=== PATIENT | female | born 1970 | race Caucasian/White ===

== ENCOUNTER 2017-02-05 10:02 | Emergency (ER) | payer BC, MEDICAID, OTHER ==
[~2017-02-05] VITALS: Ht 170.2 cm; Wt 144.7 kg
[2017-02-05 10:09] VITALS: BP 169/111; PULSE 106; RESP 16; TEMP 99; O2SAT 95
--- NOTE | 2017-02-05 10:23 | PD ---
HPI Chief Complaint: [employer] D[employer]er Problem/Complaint Time Seen by Provider: 10:22 Travel History International Travel<30 days: No Contact w/Intl Traveler<30days: No Traveled to known affect area: No History of Present Illness HPI 46-year-old female came to the emergency room with history of vaginal bleeding for past 3 days. Patient says it's been getting heavier. Currently she is soaking 1 pad every 20 minutes. She says it's just pouring out. She has been a little bit lightheaded. Patient was tachycardic with a heart rate in 100s in triage. Patient says her period has become very irregular and her last one was last year. She has some cramps and passing clots as well. She is not on any blood thinners. She has never had heavy bleeding like this in the past. [facility] Past Medical History Narrative Medical List of her past medical, surgical, social and family history is reviewed from the nursing note. Diminished Hearing: No Tetanus Vaccination: Unknown Influenza Vaccination: No ?: Not Tubal Ligation: Yes Past Surgical History Other Surgery: Yes (VOCAL POLYP) Social History Alcohol Use: Yes (OCC) Tobacco Use: Yes (1 PPD) Substance Use: No Allergies-Medications (Allergen,Severity, Reaction): Coded Allergies: No Known Allergies (Unverified , 02/05/17) Comments No known drug allergies. Reported Meds & Prescriptions Reported Meds & Active Scripts Active Megestrol (Megestrol Acetate) 40 Mg Tab 40 Mg PO BID 10 Days Narrative Medication List of her home medications reviewed from the nursing note. Review of Systems Except as stated in HPI: all other systems reviewed are Neg Physical Exam Narrative GENERAL: Awake, alert, obese, anxious, moderate distress SKIN: Warm and dry. HEAD: Atraumatic. Normocephalic. EYES: Pupils equal and round. No scleral icterus. No injection or drainage. ENT: No nasal bleeding or discharge. Mucous membranes pink and moist. NECK: Trachea midline. No JVD. CARDIOVASCULAR: Regular rate and rhythm. No murmur appreciated. RESPIRATORY: No accessory muscle use. Clear to auscultation. Breath sounds equal bilaterally. GASTROINTESTINAL: Abdomen soft, non-tender, nondistended. Hepatic and splenic margins not palpable. MUSCULOSKELETAL: No obvious deformities. No clubbing. No cyanosis. No edema. NEUROLOGICAL: Awake and alert. No obvious cranial nerve deficits. Motor grossly within normal limits. Normal speech. PSYCHIATRIC: Appropriate mood and affect; insight and judgment normal. Data Data Last Documented VS Vital Signs Date Time Temp Pulse Resp B/P Pulse Ox O2 Delivery O2 Flow Rate FiO2 02/05/17 13:06 86 16 162/98 97 02/05/17 10:50 Room Air 02/05/17 10:09 99.0 Orders Complete Blood Count With Diff (02/05/17 10:30) Basic Metabolic Panel (Bmp) (02/05/17 10:30) Ed Urine Pregnancytest Poc (02/05/17 10:30) Sodium Chlor 0.9% 1000 Ml Inj (Ns 1000 M (02/05/17 10:30) Ibuprofen (Motrin) (02/05/17 10:30) Type And Screen (02/05/17 10:30) Us Pelvis Comp W Transvaginal (02/05/17 ) Megestrol (Megace) (02/05/17 12:30) Mandatory Outpatient Referral (02/05/17 12:24) Labs Laboratory Tests Test 02/05/17 11:15 White Blood Count 14.0 TH/MM3 Red Blood Count 5.03 MIL/MM3 Hemoglobin 14.3 GM/DL Hematocrit 43.0 % Mean Corpuscular Volume 85.4 FL Mean Corpuscular Hemoglobin 28.5 PG Mean Corpuscular Hemoglobin 33.4 % Concent Red Cell Distribution Width 13.1 % Platelet Count 353 TH/MM3 Mean Platelet Volume 8.0 FL Neutrophils (%) (Auto) 74.7 % Lymphocytes (%) (Auto) 16.9 % Monocytes (%) (Auto) 3.8 % Eosinophils (%) (Auto) 1.6 % Basophils (%) (Auto) 3.0 % Neutrophils # (Auto) 10.5 TH/MM3 Lymphocytes # (Auto) 2.4 TH/MM3 Monocytes # (Auto) 0.5 TH/MM3 Eosinophils # (Auto) 0.2 TH/MM3 Basophils # (Auto) 0.4 TH/MM3 CBC Comment DIFF FINAL Differential Comment Sodium Level 141 MEQ/L Potassium Level 4.2 MEQ/L Chloride Level 105 MEQ/L Carbon Dioxide Level 28.1 MEQ/L Anion Gap 8 MEQ/L Blood Urea Nitrogen 9 MG/DL Creatinine 0.66 MG/DL Estimat Glomerular Filtration 96 ML/MIN Rate Random Glucose 105 MG/DL Calcium Level 8.8 MG/DL Blood Type O POSITIVE Antibody Screen NEGATIVE Blood Bank Comment MDM Medical Decision Making Medical Screen Exam Complete: Yes Emergency Medical Condition: Yes Medical Record Reviewed: Yes Differential Diagnosis Dysfunctional uterine bleeding, uterine cancer Narrative Course 12:08 PM ultrasound of pelvis was done which shows slightly thickened endometrium menopausal patient. She also has fibroids. Blood test shows elevated WBC count but H&H is stable. Chemistry is within acceptable limits. I put a page out for the INSURANCE ADJUSTOR specialist that I can discuss this case with them. I given patient high-dose Motrin. Patient is a smoker and hence not a good candidate for oral contraceptives. 12:25 PM I discussed the case with INSURANCE ADJUSTOR online merchandiser Dr. Ribeiro. She wanted the patient to be started on Megace 40 mg twice a day. As per her patient could be discharged home with since H&H is stable. She will see her in her office within a week. I let the patient know about this and she'll be discharged. Procedures EKG Prior to Arrival: No Physician Communication Physician Communication Dr. Ribeiro Diagnosis Primary Impression: Vaginal bleeding Additional Impressions: Postmenopausal bleeding Uterine polyp Referrals: Dariela Ribeiro MD 3 days Additional Instructions: Please call the INSURANCE ADJUSTOR specialist's name and number been given to you. Take the medications as per the prescription direction. He can take [id number] Motrin along with it. Take it easy. Do not lift anything heavy. No tampon or vaginal intercourse till the bleeding has slowed down. Med/Other Pt SpecificInfo: Prescription(s) given Scripts Megestrol 40 Mg Tab40 Mg PO BID 10 Days Ref 0 Prov:Hoang Hollis MD 02/05/17 Disposition: 01 DISCHARGE HOME Condition: Stable Hoang Hollis MD Feb 05, 2017 10:23
[2017-02-05] MEDS ORDERED: IBUPROFEN 800 MG TAB PO ONE (10:30)
[2017-02-05] MEDS ORDERED: SODIUM CHLOR 0.9% 1000 ML INJ 1,000 ML IV ONE (10:30)
[2017-02-05 10:50] VITALS: BP 146/68; PULSE 97; RESP 16; O2SAT 97
[2017-02-05 11:30] VITALS: RESP 16
[2017-02-05 11:32] LABS: AUTOMATED NEUTROPHIL # 10.5 TH/MM3 (1.8-7.7); BASOPHIL # 0.4 TH/MM3 (0-0.2); EOSINOPHIL # 0.2 TH/MM3 (0-0.4); EOSINOPHIL % 1.6 % (0.0-4.0); LYMPH % 16.9 % (9.0-44.0); LYMPHOCYTE # 2.4 TH/MM3 (1.0-4.8); MEAN CELL VOLUME 85.4 FL (80.0-100.0); MEAN CORPUSCULAR HEMOGLOBIN 28.5 PG (27.0-34.0); MEAN CORPUSCULAR HGB CONC 33.4 % (32.0-36.0); MONO % 3.8 % (0.0-8.0); NEUT % 74.7 % (16.0-70.0); PLATELET COUNT 353 TH/MM3 (150-450); RED BLOOD COUNT 5.03 MIL/MM3 (4.00-5.30); RED CELL DISTRIBUTION WIDTH 13.1 % (11.6-17.2)
[2017-02-05 11:34] LABS: HEMO FLAGS DIFF FINAL
[2017-02-05 11:35] LABS: POTASSIUM 4.2 MEQ/L (3.5-5.1)
[2017-02-05 11:38] LABS: BICARBONATE 28.1 MEQ/L (21.0-32.0)
--- NOTE | 2017-02-05 11:56 | RADHPO ---
EXAM DATE/TIME: 02/05/2017 09:44 [place] COMPARISON: No previous studies available for comparison. INDICATIONS: Pelvic pain and post menopausal bleeding. MEDICAL HISTORY: Pelvic pain and post menopausal bleeding. SURGICAL HISTORY: Vocal polyp removed. ENCOUNTER: Initial ACUITY: 2 days PAIN SCORE: 4/10 LOCATION: Bilateral pelvis MEASUREMENTS: UTERUS: 13.6 x 7.5 x 7.6 cm ENDOMETRIAL STRIPE: 8 mm RIGHT OVARY: Non visualized LEFT OVARY: 4.0 x 2.7 x 2.9 cm FINDINGS: UTERUS: The uterus does appear enlarged. The endometrium is thickened for a postmenopausal female at 8 mm. There are focal myometrial masses measuring 4.7 x 3.4 x 4.3 cm and 2.3 x 2.5 x 2.1 cm likely represen ting leiomyomas. There is a Nabothian cyst present at the cervix. RIGHT OVARY: The right ovary is not visualized. Right adnexal mass not seen. LEFT OVARY: The left ovary appears mildly prominent with a 1.7 cm cystic area seen. CONCLUSION: 1. The endometrial echo complex measures 8 mm which is mildly thickened for a postmenopausal female. 2. The right ovary is not seen. There does appear to be a 1.7 cm at the left ovary. 3. Suspected leiomyomas at the uterus. Adin Jones MD on February 05, 2017 at 11:39 Board Certified Radiologist. This report was verified electronically.
[2017-02-05] MEDS ORDERED: MEGE40TA PO (12:29)
[2017-02-05] MEDS ORDERED: MEGESTROL ACETATE 40 MG TAB PO ONE (12:30)
[2017-02-05 13:06] VITALS: BP 162/98
== END 2017-02-05 13:20 | disposition home or self-care (01) ==
LOC: PHED 10:02
DX: N93.9 Abnormal uterine and vaginal bleeding, unspecified (principal); N95.0 Postmenopausal bleeding; N84.0 Polyp of corpus uteri; F17.210 Nicotine dependence, cigarettes, uncomplicated
CPT/HCPCS: 76830; 76856; 80048; 84703; 85025; 86850; 86900; 86901; 96360; 99284; J7030